=== PATIENT | male | born 1955 | race Caucasian/White ===

== ENCOUNTER 2016-08-22 11:43 | Inpatient (IN) | payer MEDICARE ==
[~2016-08-22] VITALS: Ht 177.8 cm; Wt 93.2 kg
[2016-08-22] MEDS ORDERED: HYDR25TA9 PO (12:19)
[2016-08-22] MEDS ORDERED: SIMV40TA3 PO (12:19)
[2016-08-22] MEDS ORDERED: IV NORMAL SALINE 1000ML BAG 1,000 ML IV SCH ×3 (12:20→17:00)
[2016-08-22] MEDS ORDERED: ASPI325T4 PO (12:20)
--- NOTE | 2016-08-22 12:25 | PHYS DOC ---
Past Medical History Past Medical History: Arrhythmia, High Cholesterol, Hypertension, Other Additional Past Medical Histor: RLS; Past Surgical History: Pacemaker, Other Additional Past Surgical Histo: hernia; ankle; pacemaker x2 Alcohol Use: Occasionally Drug Use: Marijuana Adult General Chief Complaint Chief Complaint: FLU SYMPTOM HPI HPI Patient is a 61 year old male who presents with complaint of generalized body aches, chills, and shortness of breath with exertion. Patient states his symptoms started yesterday. Patient denies any known sick contacts. Patient has not had fevers but states that he did have an episode of loose stools yesterday. Patient has had decreased oral intake but denies vomiting. Patient states that he had an episode yesterday where he had difficulty swallowing but states that this has resolved today. Denies any chest pain or abdominal pain at rest currently. Patient has not taken any medications to help with his symptoms. Due to worsening generalized weakness, patient was brought to the emergency department by his family for evaluation. Review of Systems Review of Systems Constitutional: Chills [] Eyes: Denies change in visual acuity, redness, or eye pain [] HENT: Denies nasal congestion or sore throat [] Respiratory: Shortness of breath with exertion, denies cough [] Cardiovascular: Denies chest pain or edema [] GI: Denies abdominal pain, nausea, vomiting, bloody stools or diarrhea [] : Denies dysuria or hematuria [] Musculoskeletal: Denies back pain or joint pain [] Integument: Denies rash or skin lesions [] Neurologic: Denies headache, focal weakness or sensory changes [] Current Medications Current Medications Current Medications Medications (Trade) Dose Ordered Sig/Opal Start Time Stop Time Status Last Admin Dose Admin Fentanyl Citrate 50 mcg 50 mcg PRN Q15MIN PRN 08/22/16 12:30 08/23/16 12:29 Info (Do NOT chart on this entry -- for MONITORING) 1 each PRN DAILY PRN 08/22/16 13:15 08/24/16 13:14 Iohexol (Omnipaque 300 Mg/ml) 75 ml 1X ONCE 08/22/16 13:15 08/22/16 13:16 DC 08/22/16 13:18 75 ML Ondansetron HCl (Zofran) 4 mg 1X ONCE 08/22/16 12:30 08/22/16 12:31 DC Sodium Chloride (Iv Sodium Chloride 0.9% 1000ml Bag) 1,000 ml @ 1,000 mls/hr Q1H 08/22/16 12:20 08/22/16 13:19 DC 08/22/16 13:40 1,000 MLS/HR Allergies Allergies Allergies Coded Allergies Type Severity Reaction Last Updated Verified codeine Allergy Intermediate 08/22/16 Yes nitroglycerin Adverse Reaction Intermediate headache 08/22/16 Yes Physical Exam Physical Exam Constitutional: Alert, afebrile, appears in mild discomfort. [] HENT: Normocephalic, atraumatic, bilateral external ears normal, oropharynx moist, no oral exudates, nose normal. [] Eyes: PERRLA, EOMI, conjunctiva normal, no discharge. [] Neck: Normal range of motion, no tenderness, supple, no stridor. [] Cardiovascular:Heart rate regular rhythm, no murmur [] Lungs & Thorax: Nonlabored respirations, Bilateral breath sounds clear to auscultation, chest nontender to palpation [] Abdomen: Bowel sounds normal, soft, left lower quadrant tenderness to palpation with guarding, no rebound tenderness, no masses, no pulsatile masses. [] Skin: Warm, dry, no erythema, no rash. [] Back: No tenderness, no CVA tenderness. [] Extremities: No tenderness, no cyanosis, no clubbing, ROM intact, no edema. [] Neurologic: Alert and oriented X 3, normal motor function, normal sensory function, no focal deficits noted. [] Current Patient Data Vital Signs Vital Signs Date Time Temp Pulse Resp B/P Pulse Ox O2 Delivery O2 Flow Rate FiO2 08/22/16 14:12 62 16 134/90 99 08/22/16 12:18 Room Air 08/22/16 11:50 97.8 97.8 Lab Values Laboratory Tests Test 08/22/16 12:20 08/22/16 12:34 08/22/16 13:30 Influenza Type A Antigen Negative (NEGATIVE) Influenza Type B Antigen Negative (NEGATIVE) White Blood Count 15.0x10^3/uL (4.0-11.0) H Red Blood Count 5.34x10^6/uL (4.30-5.70) Hemoglobin 16.1g/dL (13.0-17.5) Hematocrit 48.1% (39.0-53.0) Mean Corpuscular Volume 90fL (79-100) Mean Corpuscular Hemoglobin 30pg (25-35) Mean Corpuscular Hemoglobin Concent 33g/dL (31-37) Red Cell Distribution Width 14.3% (11.5-14.5) Platelet Count 236x10^3/uL (140-400) Neutrophils (%) (Auto) 75% (31-73) H Lymphocytes (%) (Auto) 18% (24-48) L Monocytes (%) (Auto) 5% (0-9) Eosinophils (%) (Auto) 1% (0-3) Basophils (%) (Auto) 1% (0-3) Neutrophils # (Auto) 11.3x10^3uL (1.8-7.7) H Lymphocytes # (Auto) 2.7x10^3/uL (1.0-4.8) Monocytes # (Auto) 0.8x10^3/uL (0.0-1.1) Eosinophils # (Auto) 0.1x10^3/uL (0.0-0.7) Basophils # (Auto) 0.2x10^3/uL (0.0-0.2) Sodium Level 140mmol/L (136-145) Potassium Level 3.6mmol/L (3.5-5.1) Chloride Level 103mmol/L (98-107) Carbon Dioxide Level 23mmol/L (21-32) Anion Gap 14 (6-14) Blood Urea Nitrogen 11mg/dL (8-26) Creatinine 1.1mg/dL (0.7-1.3) Estimated GFR (Cockcroft-Gault) 67.8 BUN/Creatinine Ratio 10 (6-20) Glucose Level 129mg/dL (70-99) H Calcium Level 9.8mg/dL (8.5-10.1) Total Bilirubin 0.7mg/dL (0.2-1.0) Aspartate Amino Transferase (AST) 23U/L (15-37) Alanine Aminotransferase (ALT) 43U/L (16-63) Alkaline Phosphatase 93U/L (46-116) Creatine Kinase 54U/L (39-308) Creatine Kinase MB (Mass) 0.6ng/mL (0.0-3.6) Creatine Kinase MB Relative Index 1.1% (0-4) Troponin I Quantitative < 0.017ng/mL (0.000-0.055) Total Protein 8.2g/dL (6.4-8.2) Albumin 4.1g/dL (3.4-5.0) Albumin/Globulin Ratio 1.0 (1.0-1.7) Lipase 1638U/L (73-393) H Urine Collection Type Unknown Urine Color Yellow Urine Clarity Clear Urine pH 5.0 Urine Specific [place] <=1.005 Urine Protein Negativemg/dL (NEG-TRACE) Urine Glucose (UA) Negativemg/dL (NEG) Urine Ketones (Stick) Negativemg/dL (NEG) Urine Blood Trace (NEG) Urine Nitrite Negative (NEG) Urine Bilirubin Negative (NEG) Urine Urobilinogen Dipstick 0.2mg/dL (0.2 mg/dL) Urine Leukocyte Esterase Negative (NEG) Urine RBC Occ/HPF (0-2) Urine WBC 0/HPF (0-4) Urine Squamous Epithelial Cells Occ/LPF Urine Bacteria 0/HPF (0-FEW) Urine Mucus Slight/LPF Laboratory Tests 08/22/16 12:34 Laboratory Tests 08/22/16 12:34 EKG EKG Interpreted by me: Heart rate 65, sinus rhythm, normal intervals, normal axis, no acute ST/T-wave abnormalities present [] Radiology/Procedures Radiology/Procedures [facility] [address] [place] [address] IMAGING REPORT Signed PATIENT: JORDI GRANDA ACCOUNT: [id number] : 1955 LOCATION: ER AGE: 61 SEX: M EXAM STATUS: REG ER ORD. PHYSICIAN: BERTRAND PETERSON MD REASON: shortness of breath PROCEDURE: PORTABLE CHEST 1V Indication: Shortness of breath. Time of exam 12:50 PM Correlation is made with prior study from 09/18/2009. Right subclavian cardiac pacer remains in place. Old pacer leads via the left subclavian remain in place. There appears to be chronic pleural thickening in the left base. No infiltrate or failure is detected. There is no pneumothorax. Impression: No acute feature identified. PQRS Compliance Statement: One or more of the following individualized dose reduction techniques were utilized for this examination: 1. Automated exposure control 2. Adjustment of the mA and/or kV according to patient size 3. Use of iterative reconstruction technique DICTATED and SIGNED BY: JAZMIN GOODMAN MD DATE: 08/22/16 1257 CC: BERTRAND PETERSON MD; KI TYSON MD ~ [facility] [address] [place] [address] IMAGING REPORT Signed PATIENT: JORDI GRANDA ACCOUNT: [id number] : 1955 LOCATION: ER AGE: 61 SEX: M EXAM STATUS: REG ER ORD. PHYSICIAN: BERTRAND PETERSON MD REASON: left lower quadrant abdominal pain PROCEDURE: ABD PELV W/ IV CONTRAST ONLY CT of the abdomen and pelvis with contrast, 08/22/2016: History: Left-sided pain Multidetector CT imaging was performed following oral administration of contrast. No IV contrast was administered. Transvenous pacing leads extending into the heart. There is no evidence of a hepatic mass or bile duct dilatation. The gallbladder is unremarkable. No pancreatic abnormality is seen. The spleen is of normal size. There is a small cyst arising from the posterior aspect of the right kidney. The right kidney is otherwise unremarkable. There is a 5.9 cm solid mass arising from the inferolateral aspect of the left kidney. The mass does not appear to contain fat. It demonstrates decreased density centrally. This likely represents tumor necrosis. A central scar from an oncocytoma is less likely. There is an 11 mm calculus in the lower pole collecting system of the left kidney. There is no evidence of hydronephrosis. The left renal vein is unremarkable. No adrenal abnormality is detected. Mild aortoiliac calcific plaquing is present without evidence of aneurysm. No retroperitoneal, mesenteric or pelvic adenopathy is seen. The prostate gland is near the upper limits of normal in size. A couple of small scattered colonic diverticula are noted without evidence of pericolic inflammation. The bowel loops are not dilated. The appendix is unremarkable. No free fluid or free air is evident in the abdomen or pelvis. IMPRESSION: 1. Left renal mass most likely representing renal cell carcinoma. 2. Nonobstructing calculus in the lower pole of the left kidney. 3. Small right renal cyst. DICTATED and SIGNED BY: JORDAN TIMMONS MD DATE: 08/22/16 3334 CC: BERTRAND PETERSON MD; KI TYSON MD ~ [] Course & Med Decision Making Course & Med Decision Making Pertinent Labs and Imaging studies reviewed. (See chart for details) Patient was found to have acute pancreatitis with unknown etiology. Patient started on IV fluids and fentanyl. Patient was also found to have a new left renal mass concerning for renal carcinoma. The patient will be admitted to the hospital for treatment of acute pancreatitis and patient will also have further evaluation of left renal mass. I spoke with Dr. Courtney who accepted care patient in hospital. A consult was placed to Dr. Aleman of to follow with patient in hospital. Dragon Disclaimer Dragon Disclaimer This electronic medical record was generated, in whole or in part, using a voice recognition dictation system. Departure Departure Impression: Primary Impression: Acute pancreatitis Additional Impression: Left renal mass Disposition: ADMITTED INPATIENT Admitting Physician: Phill Courtney Condition: STABLE Referrals: KI TYSON MD (PCP) Problem Qualifiers Primary Impression: Acute pancreatitis Pancreatitis type: unspecified pancreatitis type Acute pancreatitis complication: unspecified Qualified Code: K85.90 - Acute pancreatitis without necrosis or infection, unspecified BERTRAND PETERSON MD Aug 22, 2016 12:25
[2016-08-22] MEDS ORDERED: FENTANYL PF 100 MCG/2 ML VIAL. IV PRN ×2 (12:30→15:45)
[2016-08-22] MEDS ORDERED: ONDANSETRON PF 4 MG/2 ML VIAL. IV ONE (12:30)
[2016-08-22 12:50] LABS: OBC FLU VALID
[2016-08-22 12:54] LABS: BASO # 0.2 x10^3/uL (0.0-0.2); BASO % 1 % (0-3); EOS % 1 % (0-3); HEMATOCRIT 48.1 % (39.0-53.0); HEMOGLOBIN 16.1 g/dL (13.0-17.5); LYMPH # 2.7 x10^3/uL (1.0-4.8); LYMPH % 18 % (24-48); MEAN CORPUSCULAR HEMOGLOBIN 30 pg (25-35); MEAN CORPUSCULAR HGB CONC 33 g/dL (31-37); MEAN CORPUSCULAR VOLUME 90 fL (79-100); MONO % 5 % (0-9); NEUT % 75 % (31-73); PLATELET COUNT 236 x10^3/uL (140-400); RED BLOOD COUNT 5.34 x10^6/uL (4.30-5.70); RED CELL DISTRIBUTION WIDTH 14.3 % (11.5-14.5)
[2016-08-22 12:55] LABS: CALCIUM 9.8 mg/dL (8.5-10.1); CREATININE 1.1 mg/dL (0.7-1.3); GFR 67.8; POTASSIUM 3.6 mmol/L (3.5-5.1)
--- NOTE | 2016-08-22 12:56 | RAD ---
Indication: Shortness of breath. Time of exam 12:50 PM Correlation is made with prior study from 09/18/2009. Right subclavian cardiac pacer remains in place. Old pacer leads via the left subclavian remain in place. There appears to be chronic pleural thickening in the left base. No infiltrate or failure is detected. There is no pneumothorax. Impression: No acute feature identified. PQRS Compliance Statement: One or more of the following individualized dose reduction techniques were utilized for this examination: 1. Automated exposure control 2. Adjustment of the mA and/or kV according to patient size 3. Use of iterative reconstruction technique
[2016-08-22 13:02] LABS: ALBUMIN 4.1 g/dL (3.4-5.0); TOTAL BILIRUBIN 0.7 mg/dL (0.2-1.0); TOTAL PROTEIN 8.2 g/dL (6.4-8.2)
[2016-08-22 13:11] LABS: CKMB INDEX 1.1 % (0-4); CKMB MASS 0.6 ng/mL (0.0-3.6)
[2016-08-22] MEDS ORDERED: CONTRAST GIVEN MC PRN (13:15)
[2016-08-22] MEDS ORDERED: IOHEXOL 300 MG/ML 75 ML VIAL IV ONE (13:15)
--- NOTE | 2016-08-22 13:43 | RAD ---
CT of the abdomen and pelvis with contrast, 08/22/2016: History: Left-sided pain Multidetector CT imaging was performed following oral administration of contrast. No IV contrast was administered. Transvenous pacing leads extending into the heart. There is no evidence of a hepatic mass or bile duct dilatation. The gallbladder is unremarkable. No pancreatic abnormality is seen. The spleen is of normal size. There is a small cyst arising from the posterior aspect of the right kidney. The right kidney is otherwise unremarkable. There is a 5.9 cm solid mass arising from the inferolateral aspect of the left kidney. The mass does not appear to contain fat. It demonstrates decreased density centrally. This likely represents tumor necrosis. A central scar from an oncocytoma is less likely. There is an 11 mm calculus in the lower pole collecting system of the left kidney. There is no evidence of hydronephrosis. The left renal vein is unremarkable. No adrenal abnormality is detected. Mild aortoiliac calcific plaquing is present without evidence of aneurysm. No retroperitoneal, mesenteric or pelvic adenopathy is seen. The prostate gland is near the upper limits of normal in size. A couple of small scattered colonic diverticula are noted without evidence of pericolic inflammation. The bowel loops are not dilated. The appendix is unremarkable. No free fluid or free air is evident in the abdomen or pelvis. IMPRESSION: 1. Left renal mass most likely representing renal cell carcinoma. 2. Nonobstructing calculus in the lower pole of the left kidney. 3. Small right renal cyst.
[2016-08-22 13:54] LABS: BILIRUBIN,URINE NEGATIVE (NEG); GLUCOSE,URINE NEGATIVE (NEG); NITRITE,URINE NEGATIVE (NEG); PROTEIN,URINE NEGATIVE (NEG-TRACE); UROBILINOGEN,URINE 0.2 mg/dL (0.2 mg/dL)
[2016-08-22 14:04] LABS: BACTERIA,URINE 0 /HPF (0-FEW); RBC,URINE OCC /HPF (0-2); SQUAMOUS EPITHELIAL CELL,UR OCC /LPF; WBC,URINE 0 /HPF (0-4)
[2016-08-22] MEDS ORDERED: ONDANSETRON PF 4 MG/2 ML VIAL. IV PRN ×2 (15:45→19:15)
[2016-08-22] MEDS ORDERED: ACETAMINOPHEN 325 MG TABLET. PO PRN ×2 (15:45→19:15)
--- NOTE | 2016-08-22 16:05 | PDOC1 ---
History and Physical Current Medications Current Medications Current Medications Medications (Trade) Dose Ordered Sig/Opal Start Time Stop Time Status Last Admin Dose Admin Acetaminophen (Tylenol) 650 mg PRN Q4HRS PRN 08/22/16 15:45 08/23/16 15:44 Fentanyl Citrate (Fentanyl 2ml Vial) 50 mcg PRN Q15MIN PRN 08/22/16 12:30 08/23/16 12:29 Fentanyl Citrate 50 mcg 50 mcg PRN Q2HR PRN 08/22/16 15:45 08/23/16 15:44 Info (Do NOT chart on this entry -- for MONITORING) 1 each PRN DAILY PRN 08/22/16 13:15 08/24/16 13:14 Iohexol (Omnipaque 300 Mg/ml) 75 ml 1X ONCE 08/22/16 13:15 08/22/16 13:16 DC 08/22/16 13:18 75 ML Ondansetron HCl (Zofran) 4 mg PRN Q8HRS PRN 08/22/16 15:45 08/23/16 15:44 Sodium Chloride (Iv Sodium Chloride 0.9% 1000ml Bag) 1,000 ml @ 100 mls/hr Q10H 08/22/16 15:31 08/23/16 15:30 Allergies Allergies Allergies Coded Allergies Type Severity Reaction Last Updated Verified codeine Allergy Intermediate 08/22/16 Yes nitroglycerin Adverse Reaction Intermediate headache 08/22/16 Yes ROS Review of System CONSTITUTIONAL: No fever or chills EYES: No recent changes SKIN: No rash or itching CARDIOVASCULAR: No chest pain, syncope, palpitations, or edema RESPIRATORY: No SOB or cough GASTROINTESTINAL: No nausea, vomiting or abdominal pain NEUROLOGICAL: No headaches or weakness ENDOCRINE: No cold or heat intolerance GENITOURINARY: No urgency or frequency of urination MUSCULOSKELETAL: No back pain or joint pain LYMPHATICS: No enlarged lymph nodes PSYCHIATRIC: No anxiety or depression Physical Exam Physical Exam GEN.: No apparent distress. Alert and oriented. HEENT: Head is normocephalic, atraumatic NECK: Supple. no jvd LUNGS: Clear to auscultation. normal airflow HEART: RRR, S1, S2 present. Peripheral pulses intact ABDOMEN: Soft, mild llq tender. Positive bowel sounds. EXTREMITIES: Without any cyanosis. NEUROLOGIC: Normal speech, normal tone PSYCHIATRIC: Normal affect, normal mood. SKIN: No ulcerations Vitals Vitals Vital Signs Date Time Temp Pulse Resp B/P Pulse Ox O2 Delivery O2 Flow Rate FiO2 08/22/16 14:42 66 14 145/95 99 Room Air 08/22/16 11:50 97.8 97.8 Labs Labs Laboratory Tests Test 08/22/16 12:20 08/22/16 12:34 08/22/16 13:30 Influenza Type A Antigen Negative (NEGATIVE) Influenza Type B Antigen Negative (NEGATIVE) White Blood Count 15.0x10^3/uL (4.0-11.0) Red Blood Count 5.34x10^6/uL (4.30-5.70) Hemoglobin 16.1g/dL (13.0-17.5) Hematocrit 48.1% (39.0-53.0) Mean Corpuscular Volume 90fL (79-100) Mean Corpuscular Hemoglobin 30pg (25-35) Mean Corpuscular Hemoglobin Concent 33g/dL (31-37) Red Cell Distribution Width 14.3% (11.5-14.5) Platelet Count 236x10^3/uL (140-400) Neutrophils (%) (Auto) 75% (31-73) Lymphocytes (%) (Auto) 18% (24-48) Monocytes (%) (Auto) 5% (0-9) Eosinophils (%) (Auto) 1% (0-3) Basophils (%) (Auto) 1% (0-3) Neutrophils # (Auto) 11.3x10^3uL (1.8-7.7) Lymphocytes # (Auto) 2.7x10^3/uL (1.0-4.8) Monocytes # (Auto) 0.8x10^3/uL (0.0-1.1) Eosinophils # (Auto) 0.1x10^3/uL (0.0-0.7) Basophils # (Auto) 0.2x10^3/uL (0.0-0.2) Sodium Level 140mmol/L (136-145) Potassium Level 3.6mmol/L (3.5-5.1) Chloride Level 103mmol/L (98-107) Carbon Dioxide Level 23mmol/L (21-32) Anion Gap 14 (6-14) Blood Urea Nitrogen 11mg/dL (8-26) Creatinine 1.1mg/dL (0.7-1.3) Estimated GFR (Cockcroft-Gault) 67.8 BUN/Creatinine Ratio 10 (6-20) Glucose Level 129mg/dL (70-99) Calcium Level 9.8mg/dL (8.5-10.1) Total Bilirubin 0.7mg/dL (0.2-1.0) Aspartate Amino Transf (AST/SGOT) 23U/L (15-37) Alanine Aminotransferase (ALT/SGPT) 43U/L (16-63) Alkaline Phosphatase 93U/L (46-116) Creatine Kinase 54U/L (39-308) Creatine Kinase MB (Mass) 0.6ng/mL (0.0-3.6) Creatine Kinase MB Relative Index 1.1% (0-4) Troponin I Quantitative < 0.017ng/mL (0.000-0.055) Total Protein 8.2g/dL (6.4-8.2) Albumin 4.1g/dL (3.4-5.0) Albumin/Globulin Ratio 1.0 (1.0-1.7) Lipase 1638U/L (73-393) Urine Collection Type Unknown Urine Color Yellow Urine Clarity Clear Urine pH 5.0 Urine Specific [place] <=1.005 Urine Protein Negativemg/dL (NEG-TRACE) Urine Glucose (UA) Negativemg/dL (NEG) Urine Ketones (Stick) Negativemg/dL (NEG) Urine Blood Trace (NEG) Urine Nitrite Negative (NEG) Urine Bilirubin Negative (NEG) Urine Urobilinogen Dipstick 0.2mg/dL (0.2 mg/dL) Urine Leukocyte Esterase Negative (NEG) Urine RBC Occ/HPF (0-2) Urine WBC 0/HPF (0-4) Urine Squamous Epithelial Cells Occ/LPF Urine Bacteria 0/HPF (0-FEW) Urine Mucus Slight/LPF Laboratory Tests Test 08/22/16 12:20 08/22/16 12:34 08/22/16 13:30 Influenza Type A Antigen Negative (NEGATIVE) Influenza Type B Antigen Negative (NEGATIVE) White Blood Count 15.0x10^3/uL (4.0-11.0) Red Blood Count 5.34x10^6/uL (4.30-5.70) Hemoglobin 16.1g/dL (13.0-17.5) Hematocrit 48.1% (39.0-53.0) Mean Corpuscular Volume 90fL (79-100) Mean Corpuscular Hemoglobin 30pg (25-35) Mean Corpuscular Hemoglobin Concent 33g/dL (31-37) Red Cell Distribution Width 14.3% (11.5-14.5) Platelet Count 236x10^3/uL (140-400) Neutrophils (%) (Auto) 75% (31-73) Lymphocytes (%) (Auto) 18% (24-48) Monocytes (%) (Auto) 5% (0-9) Eosinophils (%) (Auto) 1% (0-3) Basophils (%) (Auto) 1% (0-3) Neutrophils # (Auto) 11.3x10^3uL (1.8-7.7) Lymphocytes # (Auto) 2.7x10^3/uL (1.0-4.8) Monocytes # (Auto) 0.8x10^3/uL (0.0-1.1) Eosinophils # (Auto) 0.1x10^3/uL (0.0-0.7) Basophils # (Auto) 0.2x10^3/uL (0.0-0.2) Sodium Level 140mmol/L (136-145) Potassium Level 3.6mmol/L (3.5-5.1) Chloride Level 103mmol/L (98-107) Carbon Dioxide Level 23mmol/L (21-32) Anion Gap 14 (6-14) Blood Urea Nitrogen 11mg/dL (8-26) Creatinine 1.1mg/dL (0.7-1.3) Estimated GFR (Cockcroft-Gault) 67.8 BUN/Creatinine Ratio 10 (6-20) Glucose Level 129mg/dL (70-99) Calcium Level 9.8mg/dL (8.5-10.1) Total Bilirubin 0.7mg/dL (0.2-1.0) Aspartate Amino Transf (AST/SGOT) 23U/L (15-37) Alanine Aminotransferase (ALT/SGPT) 43U/L (16-63) Alkaline Phosphatase 93U/L (46-116) Creatine Kinase 54U/L (39-308) Creatine Kinase MB (Mass) 0.6ng/mL (0.0-3.6) Creatine Kinase MB Relative Index 1.1% (0-4) Troponin I Quantitative < 0.017ng/mL (0.000-0.055) Total Protein 8.2g/dL (6.4-8.2) Albumin 4.1g/dL (3.4-5.0) Albumin/Globulin Ratio 1.0 (1.0-1.7) Lipase 1638U/L (73-393) Urine Collection Type Unknown Urine Color Yellow Urine Clarity Clear Urine pH 5.0 Urine Specific [place] <=1.005 Urine Protein Negativemg/dL (NEG-TRACE) Urine Glucose (UA) Negativemg/dL (NEG) Urine Ketones (Stick) Negativemg/dL (NEG) Urine Blood Trace (NEG) Urine Nitrite Negative (NEG) Urine Bilirubin Negative (NEG) Urine Urobilinogen Dipstick 0.2mg/dL (0.2 mg/dL) Urine Leukocyte Esterase Negative (NEG) Urine RBC Occ/HPF (0-2) Urine WBC 0/HPF (0-4) Urine Squamous Epithelial Cells Occ/LPF Urine Bacteria 0/HPF (0-FEW) Urine Mucus Slight/LPF VTE Prophylaxis Ordered VTE Prophylaxis Devices: Yes VTE Pharmacological Prophylaxi: Yes DWAYNE ARRIAGA MD Aug 22, 2016 16:05
[2016-08-22 16:10] VITALS: BP 156/99
--- NOTE | 2016-08-22 16:19 | PDOC2 ---
GI CONSULT Reason For Consult: Pancreatitis HPI: HPI: 61 y/o male brought to the ER by his family for weakness, bodyaches, chills, and occasional SOA. Labs significant for WBC [address] showed left renal mass. GI consulted for pancreatitis. History from pt, chart, and daughter, Kimberli. Weakness and dizziness has been ongoing for awhile; this comes and goes. GI- pleitez, he has a h/o reflux and heartburn treated occasionally w/ antacids (Tums) . He has some nausea and occasional dysphagia w/ liquids. Denies weight loss and says he has been eating normally at home. Had 1 loose stool recently but usually has no issues w/ diarrhea or constipation. No hematochezia or melena. No previous EGD or colonoscopy. Used to drink heavily but now only has the occasional beer w/ his son-in-law (who lives across the street) except for celebrating his birthday recently when he had "too many beers to count." PMH: PMH: HTN, HLD, pacemaker, restless leg syndrome, right ankle surgery (x2), hemorrhoidectomy FH: Family History: No pertinent hx Social History: Smoke: <1 pack per day ALCOHOL: other (used to drink heavily, only occasionally now except for celebrating his birthday) Drugs: Marijuana ROS: GEN: +chills HEENT: Denies blurred vision, sore throat CV: Denies chest pain RESP: +SOA GI: Per HPI : Denies hematuria, dysuria ENDO: Denies weight changes, +occasional BLE swelling NEURO: +dizziness MSK: +weakness SKIN: Denies jaundice, pruritus VItals: Vitals: Vital Signs Date Time Temp Pulse Resp B/P Pulse Ox O2 Delivery O2 Flow Rate FiO2 08/22/16 14:42 66 14 145/95 99 Room Air 08/22/16 11:50 97.8 97.8 Labs: Labs: Laboratory Tests Test 08/22/16 12:20 08/22/16 12:34 08/22/16 13:30 Influenza Type A Antigen Negative (NEGATIVE) Influenza Type B Antigen Negative (NEGATIVE) White Blood Count 15.0x10^3/uL (4.0-11.0) Red Blood Count 5.34x10^6/uL (4.30-5.70) Hemoglobin 16.1g/dL (13.0-17.5) Hematocrit 48.1% (39.0-53.0) Mean Corpuscular Volume 90fL (79-100) Mean Corpuscular Hemoglobin 30pg (25-35) Mean Corpuscular Hemoglobin Concent 33g/dL (31-37) Red Cell Distribution Width 14.3% (11.5-14.5) Platelet Count 236x10^3/uL (140-400) Neutrophils (%) (Auto) 75% (31-73) Lymphocytes (%) (Auto) 18% (24-48) Monocytes (%) (Auto) 5% (0-9) Eosinophils (%) (Auto) 1% (0-3) Basophils (%) (Auto) 1% (0-3) Neutrophils # (Auto) 11.3x10^3uL (1.8-7.7) Lymphocytes # (Auto) 2.7x10^3/uL (1.0-4.8) Monocytes # (Auto) 0.8x10^3/uL (0.0-1.1) Eosinophils # (Auto) 0.1x10^3/uL (0.0-0.7) Basophils # (Auto) 0.2x10^3/uL (0.0-0.2) Sodium Level 140mmol/L (136-145) Potassium Level 3.6mmol/L (3.5-5.1) Chloride Level 103mmol/L (98-107) Carbon Dioxide Level 23mmol/L (21-32) Anion Gap 14 (6-14) Blood Urea Nitrogen 11mg/dL (8-26) Creatinine 1.1mg/dL (0.7-1.3) Estimated GFR (Cockcroft-Gault) 67.8 BUN/Creatinine Ratio 10 (6-20) Glucose Level 129mg/dL (70-99) Calcium Level 9.8mg/dL (8.5-10.1) Total Bilirubin 0.7mg/dL (0.2-1.0) Aspartate Amino Transf (AST/SGOT) 23U/L (15-37) Alanine Aminotransferase (ALT/SGPT) 43U/L (16-63) Alkaline Phosphatase 93U/L (46-116) Creatine Kinase 54U/L (39-308) Creatine Kinase MB (Mass) 0.6ng/mL (0.0-3.6) Creatine Kinase MB Relative Index 1.1% (0-4) Troponin I Quantitative < 0.017ng/mL (0.000-0.055) Total Protein 8.2g/dL (6.4-8.2) Albumin 4.1g/dL (3.4-5.0) Albumin/Globulin Ratio 1.0 (1.0-1.7) Lipase 1638U/L (73-393) Urine Collection Type Unknown Urine Color Yellow Urine Clarity Clear Urine pH 5.0 Urine Specific [place] <=1.005 Urine Protein Negativemg/dL (NEG-TRACE) Urine Glucose (UA) Negativemg/dL (NEG) Urine Ketones (Stick) Negativemg/dL (NEG) Urine Blood Trace (NEG) Urine Nitrite Negative (NEG) Urine Bilirubin Negative (NEG) Urine Urobilinogen Dipstick 0.2mg/dL (0.2 mg/dL) Urine Leukocyte Esterase Negative (NEG) Urine RBC Occ/HPF (0-2) Urine WBC 0/HPF (0-4) Urine Squamous Epithelial Cells Occ/LPF Urine Bacteria 0/HPF (0-FEW) Urine Mucus Slight/LPF Allergies: Coded Allergies: codeine (Verified Allergy, Intermediate, 08/22/16) nitroglycerin (Verified Adverse Reaction, Intermediate, headache, 08/22/16) Medications: Current Medications Medications (Trade) Dose Ordered Sig/Opal Route PRN Reason Start Time Stop Time Status Last Admin Dose Admin Sodium Chloride (Iv Sodium Chloride 0.9% 1000ml Bag) 1,000 ml @ 1,000 mls/hr Q1H IV 08/22/16 12:20 08/22/16 13:19 DC 08/22/16 13:40 Iohexol (Omnipaque 300 Mg/ml) 75 ml 1X ONCE IV 08/22/16 13:15 08/22/16 13:16 DC 08/22/16 13:18 Imaging: Imaging: CT A/P w/ IV contrast 08/22/16 IMPRESSION: 1. Left renal mass most likely representing renal cell carcinoma. 2. Nonobstructing calculus in the lower pole of the left kidney. 3. Small right renal cyst. CXR 08/22/16 Impression: No acute feature identified. PE: GEN: NAD HEENT: Atraumatic, PERRL LUNGS: CTAB HEART: RRR ABD: NABS, S/ND, vague BLQ tenderness EXTREMITY: No edema SKIN: No rashes, no jaundice NEURO/PSYCH: A & O 3 A/P: A/P: Elevated lipase -normal pancreas, gallbladder on CT -normal LFTs -h/o significant alcohol intake, not so much now GERD -frequent symptoms (reflux, heartburn, nausea, dysphagia w/ liquids) treated w/ antacids -no previous EGD CRC screen -no previous colonoscopy Weakness Left renal mass -- Not clearly pancreatitis. Will start PPI and await workup for renal mass. EARLENE MELCHOR Aug 22, 2016 16:19
[2016-08-22 16:43] VITALS: BP 156/99
[2016-08-22] MEDS ORDERED: PRAM0.125 PO (16:47)
[2016-08-22] MEDS: PANTOPRAZOLE 40 MG TABLET. PO SCH (17:32)
--- NOTE | 2016-08-22 17:35 | EKG ---
[facility] [address] [place] [address] Test Date: 2016-08-22 Test Time: 12:26:53 Pat Name: JORDI GRANDA Department: Room: 562 1 Gender: M Clinical Statistics Manager: : [id number] Requested By: BERTRAND PETERSON Order Number: [id number] Reading MD: Barber Frost Measurements Intervals [place] Rate: 65 P: 45 UT: 154 QRS: 49 QRSD: 76 T: 51 QT: 392 QTc: 413 Interpretive Statements SINUS RHYTHM NORMAL ECG Electronically Signed On 08-23-2016 14:54:01 [employer]GER [employer] by Barber Frost
--- NOTE | 2016-08-22 18:19 | PDOC2 ---
UROLOGY CONSULT Date of Admission DATE: 08/22/16 TIME: 18:14 Reason for Consult: left renal mass Problems: (1) Acute pancreatitis admitted for workup for GI - abdominal pain. Imaging demonstrated left 6cm renal mass. Cr at 1.1 Feeling better Current Medications Current Medications Fentanyl Citrate 50 mcg 50 mcg PRN Q15MIN PRN IV PAIN GREATER THAN 3/10; Start 08/22/16 at 12:30; Stop 08/23/16 at 12:29 Sodium Chloride (Iv Sodium Chloride 0.9% 1000ml Bag) 1,000 ml @ 1,000 mls/hr Q1H IV Last administered on 08/22/16 13:40; Start 08/22/16 at 12:20; Stop at 13:19; Status DC Ondansetron HCl (Zofran) 4 mg 1X ONCE IV ; Start 08/22/16 at 12:30; Stop at 12:31; Status DC Iohexol (Omnipaque 300 Mg/ml) 75 ml 1X ONCE IV Last administered on 08/22/16 13:18; Start 08/22/16 at 13:15; Stop 08/22/16 at 13:16; Status DC Info (Do NOT chart on this entry -- for MONITORING) 1 each PRN DAILY PRN MC SEE COMMENTS; Start 08/22/16 at 13:15; Stop 08/24/16 at 13:14 Ondansetron HCl (Zofran) 4 mg PRN Q8HRS PRN IV NAUSEA/VOMITING; Start 08/22/16 at 15:45; Stop 08/23/16 at 15:44 Fentanyl Citrate 50 mcg 50 mcg PRN Q2HR PRN IV PAIN; Start 08/22/16 at 15:45; Stop 08/23/16 at 15:44 Sodium Chloride (Iv Sodium Chloride 0.9% 1000ml Bag) 1,000 ml @ 100 mls/hr Q10H IV ; Start 08/22/16 at 15:31; Stop 08/22/16 at 16:07; Status DC Acetaminophen 650 mg 650 mg PRN Q4HRS PRN PO FEVER; Start 08/22/16 at 15:45; Stop 08/23/16 at 15:44 Sodium Chloride (Iv Sodium Chloride 0.9% 1000ml Bag) 1,000 ml @ 150 mls/hr Q6H40M IV Last administered on 08/22/16 17:32; Start 08/22/16 at 17:00; Stop 08/23/16 at 16:59 Pantoprazole Sodium (Protonix) 40 mg DAILYAC PO Last administered on 08/22/16 17:32; Start 08/22/16 at 17:00 Active Scripts Active Reported Mirapex (Pramipexole Di-Hcl) 0.125 Mg Tablet 0.125 Mg PO HS Aspirin 325 Mg Tablet 1 Tab PO DAILY Simvastatin 40 Mg Tablet 1 Tab PO QHS Hydrochlorothiazide Tablet (Hydrochlorothiazide) 25 Mg Tablet 1 Tab PO DAILY Allergies: Coded Allergies: codeine (Verified Allergy, Intermediate, 08/22/16) nitroglycerin (Verified Adverse Reaction, Intermediate, headache, 08/22/16) Physical Examination GEN: NAD HEENT: head atraumatic, normocephalic CV: Regular LUNGS: Normal effort ABdomen: soft, mild TTP midline Skin: warm and moist Pysch: normal affect, pleasant VITALS Vital Signs Date Time Temp Pulse Resp B/P Pulse Ox O2 Delivery O2 Flow Rate FiO2 08/22/16 16:43 97.8 74 18 156/99 94 Room Air 97.8 Labs Laboratory Tests Test 08/22/16 12:20 08/22/16 12:34 08/22/16 13:30 Influenza Type A Antigen Negative (NEGATIVE) Influenza Type B Antigen Negative (NEGATIVE) White Blood Count 15.0x10^3/uL (4.0-11.0) Red Blood Count 5.34x10^6/uL (4.30-5.70) Hemoglobin 16.1g/dL (13.0-17.5) Hematocrit 48.1% (39.0-53.0) Mean Corpuscular Volume 90fL (79-100) Mean Corpuscular Hemoglobin 30pg (25-35) Mean Corpuscular Hemoglobin Concent 33g/dL (31-37) Red Cell Distribution Width 14.3% (11.5-14.5) Platelet Count 236x10^3/uL (140-400) Neutrophils (%) (Auto) 75% (31-73) Lymphocytes (%) (Auto) 18% (24-48) Monocytes (%) (Auto) 5% (0-9) Eosinophils (%) (Auto) 1% (0-3) Basophils (%) (Auto) 1% (0-3) Neutrophils # (Auto) 11.3x10^3uL (1.8-7.7) Lymphocytes # (Auto) 2.7x10^3/uL (1.0-4.8) Monocytes # (Auto) 0.8x10^3/uL (0.0-1.1) Eosinophils # (Auto) 0.1x10^3/uL (0.0-0.7) Basophils # (Auto) 0.2x10^3/uL (0.0-0.2) Sodium Level 140mmol/L (136-145) Potassium Level 3.6mmol/L (3.5-5.1) Chloride Level 103mmol/L (98-107) Carbon Dioxide Level 23mmol/L (21-32) Anion Gap 14 (6-14) Blood Urea Nitrogen 11mg/dL (8-26) Creatinine 1.1mg/dL (0.7-1.3) Estimated GFR (Cockcroft-Gault) 67.8 BUN/Creatinine Ratio 10 (6-20) Glucose Level 129mg/dL (70-99) Calcium Level 9.8mg/dL (8.5-10.1) Total Bilirubin 0.7mg/dL (0.2-1.0) Aspartate Amino Transf (AST/SGOT) 23U/L (15-37) Alanine Aminotransferase (ALT/SGPT) 43U/L (16-63) Alkaline Phosphatase 93U/L (46-116) Creatine Kinase 54U/L (39-308) Creatine Kinase MB (Mass) 0.6ng/mL (0.0-3.6) Creatine Kinase MB Relative Index 1.1% (0-4) Troponin I Quantitative < 0.017ng/mL (0.000-0.055) Total Protein 8.2g/dL (6.4-8.2) Albumin 4.1g/dL (3.4-5.0) Albumin/Globulin Ratio 1.0 (1.0-1.7) Lipase 1638U/L (73-393) Urine Collection Type Unknown Urine Color Yellow Urine Clarity Clear Urine pH 5.0 Urine Specific [place] <=1.005 Urine Protein Negativemg/dL (NEG-TRACE) Urine Glucose (UA) Negativemg/dL (NEG) Urine Ketones (Stick) Negativemg/dL (NEG) Urine Blood Trace (NEG) Urine Nitrite Negative (NEG) Urine Bilirubin Negative (NEG) Urine Urobilinogen Dipstick 0.2mg/dL (0.2 mg/dL) Urine Leukocyte Esterase Negative (NEG) Urine RBC Occ/HPF (0-2) Urine WBC 0/HPF (0-4) Urine Squamous Epithelial Cells Occ/LPF Urine Bacteria 0/HPF (0-FEW) Urine Mucus Slight/LPF Laboratory Tests Test 08/22/16 12:20 08/22/16 12:34 08/22/16 13:30 Influenza Type A Antigen Negative (NEGATIVE) Influenza Type B Antigen Negative (NEGATIVE) White Blood Count 15.0x10^3/uL (4.0-11.0) Red Blood Count 5.34x10^6/uL (4.30-5.70) Hemoglobin 16.1g/dL (13.0-17.5) Hematocrit 48.1% (39.0-53.0) Mean Corpuscular Volume 90fL (79-100) Mean Corpuscular Hemoglobin 30pg (25-35) Mean Corpuscular Hemoglobin Concent 33g/dL (31-37) Red Cell Distribution Width 14.3% (11.5-14.5) Platelet Count 236x10^3/uL (140-400) Neutrophils (%) (Auto) 75% (31-73) Lymphocytes (%) (Auto) 18% (24-48) Monocytes (%) (Auto) 5% (0-9) Eosinophils (%) (Auto) 1% (0-3) Basophils (%) (Auto) 1% (0-3) Neutrophils # (Auto) 11.3x10^3uL (1.8-7.7) Lymphocytes # (Auto) 2.7x10^3/uL (1.0-4.8) Monocytes # (Auto) 0.8x10^3/uL (0.0-1.1) Eosinophils # (Auto) 0.1x10^3/uL (0.0-0.7) Basophils # (Auto) 0.2x10^3/uL (0.0-0.2) Sodium Level 140mmol/L (136-145) Potassium Level 3.6mmol/L (3.5-5.1) Chloride Level 103mmol/L (98-107) Carbon Dioxide Level 23mmol/L (21-32) Anion Gap 14 (6-14) Blood Urea Nitrogen 11mg/dL (8-26) Creatinine 1.1mg/dL (0.7-1.3) Estimated GFR (Cockcroft-Gault) 67.8 BUN/Creatinine Ratio 10 (6-20) Glucose Level 129mg/dL (70-99) Calcium Level 9.8mg/dL (8.5-10.1) Total Bilirubin 0.7mg/dL (0.2-1.0) Aspartate Amino Transf (AST/SGOT) 23U/L (15-37) Alanine Aminotransferase (ALT/SGPT) 43U/L (16-63) Alkaline Phosphatase 93U/L (46-116) Creatine Kinase 54U/L (39-308) Creatine Kinase MB (Mass) 0.6ng/mL (0.0-3.6) Creatine Kinase MB Relative Index 1.1% (0-4) Troponin I Quantitative < 0.017ng/mL (0.000-0.055) Total Protein 8.2g/dL (6.4-8.2) Albumin 4.1g/dL (3.4-5.0) Albumin/Globulin Ratio 1.0 (1.0-1.7) Lipase 1638U/L (73-393) Urine Collection Type Unknown Urine Color Yellow Urine Clarity Clear Urine pH 5.0 Urine Specific [place] <=1.005 Urine Protein Negativemg/dL (NEG-TRACE) Urine Glucose (UA) Negativemg/dL (NEG) Urine Ketones (Stick) Negativemg/dL (NEG) Urine Blood Trace (NEG) Urine Nitrite Negative (NEG) Urine Bilirubin Negative (NEG) Urine Urobilinogen Dipstick 0.2mg/dL (0.2 mg/dL) Urine Leukocyte Esterase Negative (NEG) Urine RBC Occ/HPF (0-2) Urine WBC 0/HPF (0-4) Urine Squamous Epithelial Cells Occ/LPF Urine Bacteria 0/HPF (0-FEW) Urine Mucus Slight/LPF Images IMPRESSION: 1. Left renal mass 6cm most likely representing renal cell carcinoma. 2. Nonobstructing calculus in the lower pole of the left kidney. 3. Small right renal cyst. Assessment/Plan LEFT RENAL MASS - Recommend follow up with Dr Nelson, Urology, in outpatient setting to discuss and schedule left nephrectomy - No further evaluation necessary during hospitalization Problem Qualifiers (1) Acute pancreatitis: Pancreatitis type: unspecified pancreatitis type Acute pancreatitis complication: unspecified Qualified Code: K85.90 - Acute pancreatitis without necrosis or infection, unspecified BRET ROMO MD Aug 22, 2016 18:19
[2016-08-22 19:00] VITALS: BP 126/84
[2016-08-22] MEDS ORDERED: hydrALAZINE 20 MG/ML VIAL. IVP PRN (19:15)
[2016-08-22] MEDS ORDERED: ALBUTEROL SULFATE 2.5 MG/3 ML NEBU. NEB PRN (19:15)
[2016-08-22] MEDS ORDERED: NICOTINE 21MG PATCH. TD PRN (19:30)
--- NOTE | 2016-08-22 20:16 | HP ---
ADMIT DATE: 08/22/2016 CHIEF COMPLAINT: Body aches and chills. HISTORY OF PRESENT ILLNESS: A 61-year-old male patient presented to the ER with complaints of body aches, chills and flu-like symptoms for nearly one end of day and also developed some shortness of breath and cough. Denies any exertional chest pain or palpitations. Upon arrival to the ER, the patient noted to have elevated lipase levels and he was admitted to the hospital for questionable pancreatitis. The patient denies any other complaints such as sick contacts with nausea, vomiting, weakness or prior history of pancreatitis. PAST MEDICAL HISTORY: Hyperlipidemia, hypertension, arrhythmias. PAST SURGICAL HISTORY: Pacemaker placement. PERSONAL HISTORY: Takes occasionally alcohol, nicotine usage and takes marijuana. FAMILY HISTORY: No cancers. REVIEW OF SYSTEMS: Please see my electronic H and P. PHYSICAL EXAMINATION: Please see my electronic H and P. LABORATORY FINDINGS: WBC ____, MCV is 90,000, platelets are 236. Chemistry: Sodium is 140, potassium 3.6, anion gap is 11, BUN is 11, creatinine is 1.1, GFR is 67.8, glucose 129 and first set of troponins less than 0.017 and lipase is 1638. IMAGING STUDIES: 1. Chest x-ray: No acute abnormalities seen. 2. Abdomen and pelvis CT showed left renal mass, likely representing a renal cell carcinoma, nonobstructing calculus in the lower pole of the left kidney. ASSESSMENT: 1. Elevated lipase, questionable pancreatitis. 2. Flu-like symptoms. 3. Left renal mass, incidental finding. 4. Nonobstructing calculus, left lower pole of the kidney. PLAN: 1. Admit the patient for IV hydration at 75-100 mL per hour and we will order influenza A and B. 2. Urology has been consulted for further recommendations and also GI has been consulted. 3. We will order lipase in a.m. 4. Start him on Protonix for now. 5. Nicotine patch p.r.n. 6. Home medications reviewed and reconciled. Continue all home medications. 7. Pain control with IV morphine and oral [place]. DWAYNE ARRIAGA MD DR: OMERO/damian JOB#: [id number] / [id number] MTDD
[2016-08-22] MEDS: IV NORMAL SALINE 1000ML BAG 1,000 ML IV SCH (20:44)
[2016-08-22 22:50] VITALS: BP 123/93
[2016-08-23] MEDS: IV NORMAL SALINE 1000ML BAG 1,000 ML IV SCH (00:53)
[2016-08-23 02:55] VITALS: BP 142/96
[2016-08-23] MEDS: PANTOPRAZOLE 40 MG TABLET. PO SCH (05:29)
[2016-08-23 07:00] VITALS: BP 134/94
[2016-08-23 07:33] LABS: BASO # 0.1 x10^3/uL (0.0-0.2); BASO % 1 % (0-3); EOS % 1 % (0-3); HEMATOCRIT 44.7 % (39.0-53.0); HEMOGLOBIN 14.8 g/dL (13.0-17.5); LYMPH % 24 % (24-48); MEAN CORPUSCULAR HEMOGLOBIN 30 pg (25-35); MEAN CORPUSCULAR HGB CONC 33 g/dL (31-37); MEAN CORPUSCULAR VOLUME 90 fL (79-100); MONO % 9 % (0-9); NEUT % 65 % (31-73); PLATELET COUNT 221 x10^3/uL (140-400); RED BLOOD COUNT 4.94 x10^6/uL (4.30-5.70); RED CELL DISTRIBUTION WIDTH 14.6 % (11.5-14.5); WHITE BLOOD COUNT 12.3 x10^3/uL (4.0-11.0)
[2016-08-23 07:59] LABS: CALCIUM 8.9 mg/dL (8.5-10.1); GFR 75.7; POTASSIUM 3.6 mmol/L (3.5-5.1)
[2016-08-23] MEDS ORDERED: INFLUENZA VAX SCREEN BY RX. MC PRN (08:45)
[2016-08-23] MEDS ORDERED: ASPIRIN 325 MG TABLET PO SCH (09:00)
[2016-08-23] MEDS ORDERED: FLU VACC QUAD 2016-17 (36MOS+)/PF 0.5 ML SYRINGE. VAX IM ONE (09:00)
[2016-08-23] MEDS: ENOXAPARIN 40 MG/0.4 ML DISP.SYRIN. SQ SCH ×2 (09:00→09:09)
--- NOTE | 2016-08-23 10:12 | PDOC ---
PROGRESS NOTES Chief Complaint Chief Complaint A/P 1. Elevated lipase, unclear etiology, 2. Flu-like symptoms.resolved. 3. Left renal mass, incidental finding. 4. Nonobstructing calculus, left lower pole of the kidney. Plan follow up with Dr Nelson lipase better Protonix d/w daughter at bedside smoking cessation labs reviewed, lipase improved Possible DC today . Vitals Vitals Vital Signs Date Time Temp Pulse Resp B/P Pulse Ox O2 Delivery O2 Flow Rate FiO2 08/23/16 08:00 Room Air 08/23/16 07:00 97.8 64 18 134/94 96 97.8 Physical Exam General: Alert, Oriented X3 Heart: Regular rate, Normal S1, Normal S2 Lungs: Clear, Wheezing Abdomen: Normal bowel sounds, Soft Labs LABS Laboratory Tests Test 08/22/16 12:20 08/22/16 12:34 08/22/16 13:30 08/23/16 07:00 Influenza Type A Antigen Negative (NEGATIVE) Influenza Type B Antigen Negative (NEGATIVE) White Blood Count 15.0x10^3/uL (4.0-11.0) 12.3x10^3/uL (4.0-11.0) Red Blood Count 5.34x10^6/uL (4.30-5.70) 4.94x10^6/uL (4.30-5.70) Hemoglobin 16.1g/dL (13.0-17.5) 14.8g/dL (13.0-17.5) Hematocrit 48.1% (39.0-53.0) 44.7% (39.0-53.0) Mean Corpuscular Volume 90fL (79-100) 90fL (79-100) Mean Corpuscular Hemoglobin 30pg (25-35) 30pg (25-35) Mean Corpuscular Hemoglobin Concent 33g/dL (31-37) 33g/dL (31-37) Red Cell Distribution Width 14.3% (11.5-14.5) 14.6% (11.5-14.5) Platelet Count 236x10^3/uL (140-400) 221x10^3/uL (140-400) Neutrophils (%) (Auto) 75% (31-73) 65% (31-73) Lymphocytes (%) (Auto) 18% (24-48) 24% (24-48) Monocytes (%) (Auto) 5% (0-9) 9% (0-9) Eosinophils (%) (Auto) 1% (0-3) 1% (0-3) Basophils (%) (Auto) 1% (0-3) 1% (0-3) Neutrophils # (Auto) 11.3x10^3uL (1.8-7.7) 7.9x10^3uL (1.8-7.7) Lymphocytes # (Auto) 2.7x10^3/uL (1.0-4.8) 3.0x10^3/uL (1.0-4.8) Monocytes # (Auto) 0.8x10^3/uL (0.0-1.1) 1.1x10^3/uL (0.0-1.1) Eosinophils # (Auto) 0.1x10^3/uL (0.0-0.7) 0.1x10^3/uL (0.0-0.7) Basophils # (Auto) 0.2x10^3/uL (0.0-0.2) 0.1x10^3/uL (0.0-0.2) Sodium Level 140mmol/L (136-145) 141mmol/L (136-145) Potassium Level 3.6mmol/L (3.5-5.1) 3.6mmol/L (3.5-5.1) Chloride Level 103mmol/L (98-107) 106mmol/L (98-107) Carbon Dioxide Level 23mmol/L (21-32) 24mmol/L (21-32) Anion Gap 14 (6-14) 11 (6-14) Blood Urea Nitrogen 11mg/dL (8-26) 12mg/dL (8-26) Creatinine 1.1mg/dL (0.7-1.3) 1.0mg/dL (0.7-1.3) Estimated GFR (Cockcroft-Gault) 67.8 75.7 BUN/Creatinine Ratio 10 (6-20) Glucose Level 129mg/dL (70-99) 114mg/dL (70-99) Calcium Level 9.8mg/dL (8.5-10.1) 8.9mg/dL (8.5-10.1) Total Bilirubin 0.7mg/dL (0.2-1.0) Aspartate Amino Transf (AST/SGOT) 23U/L (15-37) Alanine Aminotransferase (ALT/SGPT) 43U/L (16-63) Alkaline Phosphatase 93U/L (46-116) Creatine Kinase 54U/L (39-308) Creatine Kinase MB (Mass) 0.6ng/mL (0.0-3.6) Creatine Kinase MB Relative Index 1.1% (0-4) Troponin I Quantitative < 0.017ng/mL (0.000-0.055) Total Protein 8.2g/dL (6.4-8.2) Albumin 4.1g/dL (3.4-5.0) Albumin/Globulin Ratio 1.0 (1.0-1.7) Lipase 1638U/L (73-393) 494U/L (73-393) Urine Collection Type Unknown Urine Color Yellow Urine Clarity Clear Urine pH 5.0 Urine Specific [place] <=1.005 Urine Protein Negativemg/dL (NEG-TRACE) Urine Glucose (UA) Negativemg/dL (NEG) Urine Ketones (Stick) Negativemg/dL (NEG) Urine Blood Trace (NEG) Urine Nitrite Negative (NEG) Urine Bilirubin Negative (NEG) Urine Urobilinogen Dipstick 0.2mg/dL (0.2 mg/dL) Urine Leukocyte Esterase Negative (NEG) Urine RBC Occ/HPF (0-2) Urine WBC 0/HPF (0-4) Urine Squamous Epithelial Cells Occ/LPF Urine Bacteria 0/HPF (0-FEW) Urine Mucus Slight/LPF Assessment and Plan Assessmemt and Plan Problems Medical Problems: (1) Acute pancreatitis Status: Acute (2) Left renal mass Status: Acute Problems: Comment Review of Relevant I have reviewed the following items giovanni (where applicable) has been applied. Labs Laboratory Tests Test 08/22/16 12:20 08/22/16 12:34 08/22/16 13:30 08/23/16 07:00 Influenza Type A Antigen Negative (NEGATIVE) Influenza Type B Antigen Negative (NEGATIVE) White Blood Count 15.0x10^3/uL (4.0-11.0) 12.3x10^3/uL (4.0-11.0) Red Blood Count 5.34x10^6/uL (4.30-5.70) 4.94x10^6/uL (4.30-5.70) Hemoglobin 16.1g/dL (13.0-17.5) 14.8g/dL (13.0-17.5) Hematocrit 48.1% (39.0-53.0) 44.7% (39.0-53.0) Mean Corpuscular Volume 90fL (79-100) 90fL (79-100) Mean Corpuscular Hemoglobin 30pg (25-35) 30pg (25-35) Mean Corpuscular Hemoglobin Concent 33g/dL (31-37) 33g/dL (31-37) Red Cell Distribution Width 14.3% (11.5-14.5) 14.6% (11.5-14.5) Platelet Count 236x10^3/uL (140-400) 221x10^3/uL (140-400) Neutrophils (%) (Auto) 75% (31-73) 65% (31-73) Lymphocytes (%) (Auto) 18% (24-48) 24% (24-48) Monocytes (%) (Auto) 5% (0-9) 9% (0-9) Eosinophils (%) (Auto) 1% (0-3) 1% (0-3) Basophils (%) (Auto) 1% (0-3) 1% (0-3) Neutrophils # (Auto) 11.3x10^3uL (1.8-7.7) 7.9x10^3uL (1.8-7.7) Lymphocytes # (Auto) 2.7x10^3/uL (1.0-4.8) 3.0x10^3/uL (1.0-4.8) Monocytes # (Auto) 0.8x10^3/uL (0.0-1.1) 1.1x10^3/uL (0.0-1.1) Eosinophils # (Auto) 0.1x10^3/uL (0.0-0.7) 0.1x10^3/uL (0.0-0.7) Basophils # (Auto) 0.2x10^3/uL (0.0-0.2) 0.1x10^3/uL (0.0-0.2) Sodium Level 140mmol/L (136-145) 141mmol/L (136-145) Potassium Level 3.6mmol/L (3.5-5.1) 3.6mmol/L (3.5-5.1) Chloride Level 103mmol/L (98-107) 106mmol/L (98-107) Carbon Dioxide Level 23mmol/L (21-32) 24mmol/L (21-32) Anion Gap 14 (6-14) 11 (6-14) Blood Urea Nitrogen 11mg/dL (8-26) 12mg/dL (8-26) Creatinine 1.1mg/dL (0.7-1.3) 1.0mg/dL (0.7-1.3) Estimated GFR (Cockcroft-Gault) 67.8 75.7 BUN/Creatinine Ratio 10 (6-20) Glucose Level 129mg/dL (70-99) 114mg/dL (70-99) Calcium Level 9.8mg/dL (8.5-10.1) 8.9mg/dL (8.5-10.1) Total Bilirubin 0.7mg/dL (0.2-1.0) Aspartate Amino Transf (AST/SGOT) 23U/L (15-37) Alanine Aminotransferase (ALT/SGPT) 43U/L (16-63) Alkaline Phosphatase 93U/L (46-116) Creatine Kinase 54U/L (39-308) Creatine Kinase MB (Mass) 0.6ng/mL (0.0-3.6) Creatine Kinase MB Relative Index 1.1% (0-4) Troponin I Quantitative < 0.017ng/mL (0.000-0.055) Total Protein 8.2g/dL (6.4-8.2) Albumin 4.1g/dL (3.4-5.0) Albumin/Globulin Ratio 1.0 (1.0-1.7) Lipase 1638U/L (73-393) 494U/L (73-393) Urine Collection Type Unknown Urine Color Yellow Urine Clarity Clear Urine pH 5.0 Urine Specific [place] <=1.005 Urine Protein Negativemg/dL (NEG-TRACE) Urine Glucose (UA) Negativemg/dL (NEG) Urine Ketones (Stick) Negativemg/dL (NEG) Urine Blood Trace (NEG) Urine Nitrite Negative (NEG) Urine Bilirubin Negative (NEG) Urine Urobilinogen Dipstick 0.2mg/dL (0.2 mg/dL) Urine Leukocyte Esterase Negative (NEG) Urine RBC Occ/HPF (0-2) Urine WBC 0/HPF (0-4) Urine Squamous Epithelial Cells Occ/LPF Urine Bacteria 0/HPF (0-FEW) Urine Mucus Slight/LPF Laboratory Tests Test 08/22/16 12:20 08/22/16 12:34 08/22/16 13:30 08/23/16 07:00 Influenza Type A Antigen Negative (NEGATIVE) Influenza Type B Antigen Negative (NEGATIVE) White Blood Count 15.0x10^3/uL (4.0-11.0) 12.3x10^3/uL (4.0-11.0) Red Blood Count 5.34x10^6/uL (4.30-5.70) 4.94x10^6/uL (4.30-5.70) Hemoglobin 16.1g/dL (13.0-17.5) 14.8g/dL (13.0-17.5) Hematocrit 48.1% (39.0-53.0) 44.7% (39.0-53.0) Mean Corpuscular Volume 90fL (79-100) 90fL (79-100) Mean Corpuscular Hemoglobin 30pg (25-35) 30pg (25-35) Mean Corpuscular Hemoglobin Concent 33g/dL (31-37) 33g/dL (31-37) Red Cell Distribution Width 14.3% (11.5-14.5) 14.6% (11.5-14.5) Platelet Count 236x10^3/uL (140-400) 221x10^3/uL (140-400) Neutrophils (%) (Auto) 75% (31-73) 65% (31-73) Lymphocytes (%) (Auto) 18% (24-48) 24% (24-48) Monocytes (%) (Auto) 5% (0-9) 9% (0-9) Eosinophils (%) (Auto) 1% (0-3) 1% (0-3) Basophils (%) (Auto) 1% (0-3) 1% (0-3) Neutrophils # (Auto) 11.3x10^3uL (1.8-7.7) 7.9x10^3uL (1.8-7.7) Lymphocytes # (Auto) 2.7x10^3/uL (1.0-4.8) 3.0x10^3/uL (1.0-4.8) Monocytes # (Auto) 0.8x10^3/uL (0.0-1.1) 1.1x10^3/uL (0.0-1.1) Eosinophils # (Auto) 0.1x10^3/uL (0.0-0.7) 0.1x10^3/uL (0.0-0.7) Basophils # (Auto) 0.2x10^3/uL (0.0-0.2) 0.1x10^3/uL (0.0-0.2) Sodium Level 140mmol/L (136-145) 141mmol/L (136-145) Potassium Level 3.6mmol/L (3.5-5.1) 3.6mmol/L (3.5-5.1) Chloride Level 103mmol/L (98-107) 106mmol/L (98-107) Carbon Dioxide Level 23mmol/L (21-32) 24mmol/L (21-32) Anion Gap 14 (6-14) 11 (6-14) Blood Urea Nitrogen 11mg/dL (8-26) 12mg/dL (8-26) Creatinine 1.1mg/dL (0.7-1.3) 1.0mg/dL (0.7-1.3) Estimated GFR (Cockcroft-Gault) 67.8 75.7 BUN/Creatinine Ratio 10 (6-20) Glucose Level 129mg/dL (70-99) 114mg/dL (70-99) Calcium Level 9.8mg/dL (8.5-10.1) 8.9mg/dL (8.5-10.1) Total Bilirubin 0.7mg/dL (0.2-1.0) Aspartate Amino Transf (AST/SGOT) 23U/L (15-37) Alanine Aminotransferase (ALT/SGPT) 43U/L (16-63) Alkaline Phosphatase 93U/L (46-116) Creatine Kinase 54U/L (39-308) Creatine Kinase MB (Mass) 0.6ng/mL (0.0-3.6) Creatine Kinase MB Relative Index 1.1% (0-4) Troponin I Quantitative < 0.017ng/mL (0.000-0.055) Total Protein 8.2g/dL (6.4-8.2) Albumin 4.1g/dL (3.4-5.0) Albumin/Globulin Ratio 1.0 (1.0-1.7) Lipase 1638U/L (73-393) 494U/L (73-393) Urine Collection Type Unknown Urine Color Yellow Urine Clarity Clear Urine pH 5.0 Urine Specific [place] <=1.005 Urine Protein Negativemg/dL (NEG-TRACE) Urine Glucose (UA) Negativemg/dL (NEG) Urine Ketones (Stick) Negativemg/dL (NEG) Urine Blood Trace (NEG) Urine Nitrite Negative (NEG) Urine Bilirubin Negative (NEG) Urine Urobilinogen Dipstick 0.2mg/dL (0.2 mg/dL) Urine Leukocyte Esterase Negative (NEG) Urine RBC Occ/HPF (0-2) Urine WBC 0/HPF (0-4) Urine Squamous Epithelial Cells Occ/LPF Urine Bacteria 0/HPF (0-FEW) Urine Mucus Slight/LPF Medications Current Medications Fentanyl Citrate 50 mcg 50 mcg PRN Q15MIN PRN IV PAIN GREATER THAN 3/10; Start 08/22/16 at 12:30; Stop 08/23/16 at 12:29 Sodium Chloride (Iv Sodium Chloride 0.9% 1000ml Bag) 1,000 ml @ 1,000 mls/hr Q1H IV Last administered on 08/22/16 13:40; Start 08/22/16 at 12:20; Stop at 13:19; Status DC Ondansetron HCl (Zofran) 4 mg 1X ONCE IV ; Start 08/22/16 at 12:30; Stop at 12:31; Status DC Iohexol (Omnipaque 300 Mg/ml) 75 ml 1X ONCE IV Last administered on 08/22/16 13:18; Start 08/22/16 at 13:15; Stop 08/22/16 at 13:16; Status DC Info (Do NOT chart on this entry -- for MONITORING) 1 each PRN DAILY PRN MC SEE COMMENTS; Start 08/22/16 at 13:15; Stop 08/24/16 at 13:14 Ondansetron HCl (Zofran) 4 mg PRN Q8HRS PRN IV NAUSEA/VOMITING; Start 08/22/16 at 15:45; Stop 08/23/16 at 15:44 Fentanyl Citrate 50 mcg 50 mcg PRN Q2HR PRN IV PAIN; Start 08/22/16 at 15:45; Stop 08/23/16 at 15:44 Sodium Chloride (Iv Sodium Chloride 0.9% 1000ml Bag) 1,000 ml @ 100 mls/hr Q10H IV ; Start 08/22/16 at 15:31; Stop 08/22/16 at 16:07; Status DC Acetaminophen 650 mg 650 mg PRN Q4HRS PRN PO FEVER Last administered on 20:42; Start 08/22/16 at 15:45; Stop 08/23/16 at 15:44 Sodium Chloride (Iv Sodium Chloride 0.9% 1000ml Bag) 1,000 ml @ 150 mls/hr Q6H40M IV Last administered on 08/22/16 17:32; Start 08/22/16 at 17:00; Stop 08/22/16 at 19:28; Status DC Pantoprazole Sodium (Protonix) 40 mg DAILYAC PO Last administered on 08/23/16 05:29; Start 08/22/16 at 17:00 Aspirin (Janett Aspirin) 325 mg DAILY PO Last administered on 08/23/16 09:08; Start 08/23/16 at 09:00 Acetaminophen (Tylenol) 325 mg PRN Q6HRS PRN PO MILD PAIN / TEMP; Start at 19:15 Hydralazine HCl (Apresoline) 10 mg PRN Q4HRS PRN IVP ELEVATED BP, SEE COMMENTS ; Start 08/22/16 at 19:15 Ondansetron HCl (Zofran) 4 mg PRN Q8HRS PRN IV NAUSEA/VOMITING; Start 08/22/16 at 19:15 Albuterol Sulfate (Ventolin Neb Soln) 2.5 mg PRN Q4HRS PRN NEB SHORTNESS OF BREATH; Start 08/22/16 at 19:15 Enoxaparin Sodium 40 mg 40 mg DAILY SQ ; Start 08/23/16 at 09:00 Sodium Chloride (Iv Sodium Chloride 0.9% 1000ml Bag) 1,000 ml @ 125 mls/hr Q8H IV Last administered on 08/23/16t 00:53; Start 08/22/16 at 20:00; Stop at 20:01; Status DC Nicotine (Nicoderm Cq 21mg) 1 patch PRN DAILY PRN TD SMOKING CESSATION; Start 08/22/16 at 19:30 Info (Do NOT chart on this placeholder) 1 each PRN 1X PRN MC SEE COMMENTS; Start 08/23/16 at 08:45; Status UNV Influenza Virus Vaccine Quadrival (Fluarix Quad [id number] Syringe) 0.5 ml ONCE ONCE VAX IM ; Start 08/23/16 at 09:00; Stop 08/23/16 at 09:01; Status DC Active Scripts Active Reported Mirapex (Pramipexole Di-Hcl) 0.125 Mg Tablet 0.125 Mg PO HS Aspirin 325 Mg Tablet 1 Tab PO DAILY Simvastatin 40 Mg Tablet 1 Tab PO QHS Hydrochlorothiazide Tablet (Hydrochlorothiazide) 25 Mg Tablet 1 Tab PO DAILY Vitals/I & O Vital Sign - Last 24 Hours 08/22/16 08/22/16 08/22/16 08/22/16 11:50 12:18 13:27 13:42 Temp 97.8 97.8 Pulse 80 72 84 68 Resp B/P 163/106 159/95 120/74 145/97 Pulse Ox 100 98 99 99 O2 Delivery Room Air Room Air 08/22/16 08/22/16 08/22/16 08/22/16 14:12 14:42 16:10 16:43 Temp 97.8 97.8 97.8 97.8 Pulse 62 66 74 74 Resp 18 B/P 134/90 145/95 156/99 156/99 Pulse Ox 99 99 94 94 O2 Delivery Room Air Room Air Room Air 08/22/16 08/22/16 08/22/16 08/22/16 19:00 20:00 20:15 22:50 Temp 97.4 97.8 97.4 97.8 Pulse 87 67 Resp 20 18 B/P 126/84 123/93 Pulse Ox 95 96 96 O2 Delivery Room Air Room Air Room Air Room Air 08/23/16 08/23/16 08/23/16 02:55 07:00 08:00 Temp 98.0 97.8 98.0 97.8 Pulse 71 64 Resp 18 18 B/P 142/96 134/94 Pulse Ox 97 96 O2 Delivery Room Air Room Air Room Air Intake and Output 08/22/16 08/22/16 08/23/16 15:00 23:00 07:00 Intake Total 1000 ml 1467 ml Output Total 0 ml Balance 1000 ml 0 ml 1467 ml DWAYNE ARRIAGA MD Aug 23, 2016 10:12
--- NOTE | 2016-08-23 10:17 | PDOC ---
Subjective: Subjective: Feeling better. Denies n/v, abd pain. Eating well. Feels ready to DC. Objective: Objective: Reviewed urology note. Vital Signs: Vital Signs Date Time Temp Pulse Resp B/P Pulse Ox O2 Delivery O2 Flow Rate FiO2 08/23/16 08:00 Room Air 08/23/16 07:00 97.8 64 18 134/94 96 97.8 Labs: Laboratory Tests Test 08/22/16 12:20 08/22/16 12:34 08/22/16 13:30 08/23/16 07:00 Influenza Type A Antigen Negative Influenza Type B Antigen Negative White Blood Count 15.0x10^3/uL 12.3x10^3/uL Red Blood Count 5.34x10^6/uL 4.94x10^6/uL Hemoglobin 16.1g/dL 14.8g/dL Hematocrit 48.1% 44.7% Mean Corpuscular Volume 90fL 90fL Mean Corpuscular Hemoglobin 30pg 30pg Mean Corpuscular Hemoglobin Concent 33g/dL 33g/dL Red Cell Distribution Width 14.3% 14.6% Platelet Count 236x10^3/uL 221x10^3/uL Neutrophils (%) (Auto) 75% 65% Lymphocytes (%) (Auto) 18% 24% Monocytes (%) (Auto) 5% 9% Eosinophils (%) (Auto) 1% 1% Basophils (%) (Auto) 1% 1% Neutrophils # (Auto) 11.3x10^3uL 7.9x10^3uL Lymphocytes # (Auto) 2.7x10^3/uL 3.0x10^3/uL Monocytes # (Auto) 0.8x10^3/uL 1.1x10^3/uL Eosinophils # (Auto) 0.1x10^3/uL 0.1x10^3/uL Basophils # (Auto) 0.2x10^3/uL 0.1x10^3/uL Sodium Level 140mmol/L 141mmol/L Potassium Level 3.6mmol/L 3.6mmol/L Chloride Level 103mmol/L 106mmol/L Carbon Dioxide Level 23mmol/L 24mmol/L Anion Gap 14 11 Blood Urea Nitrogen 11mg/dL 12mg/dL Creatinine 1.1mg/dL 1.0mg/dL Estimated GFR (Cockcroft-Gault) 67.8 75.7 BUN/Creatinine Ratio 10 Glucose Level 129mg/dL 114mg/dL Calcium Level 9.8mg/dL 8.9mg/dL Total Bilirubin 0.7mg/dL Aspartate Amino Transf (AST/SGOT) 23U/L Alanine Aminotransferase (ALT/SGPT) 43U/L Alkaline Phosphatase 93U/L Creatine Kinase 54U/L Creatine Kinase MB (Mass) 0.6ng/mL Creatine Kinase MB Relative Index 1.1% Troponin I Quantitative < 0.017ng/mL Total Protein 8.2g/dL Albumin 4.1g/dL Albumin/Globulin Ratio 1.0 Lipase 1638U/L 494U/L Urine Collection Type Unknown Urine Color Yellow Urine Clarity Clear Urine pH 5.0 Urine Specific [place] <=1.005 Urine Protein Negativemg/dL Urine Glucose (UA) Negativemg/dL Urine Ketones (Stick) Negativemg/dL Urine Blood Trace Urine Nitrite Negative Urine Bilirubin Negative Urine Urobilinogen Dipstick 0.2mg/dL Urine Leukocyte Esterase Negative Urine RBC Occ/HPF Urine WBC 0/HPF Urine Squamous Epithelial Cells Occ/LPF Urine Bacteria 0/HPF Urine Mucus Slight/LPF PE: GEN: NAD LUNGS: CTAB anteriorly HEART: RRR ABD: NABS, S/ND, epigastric discomfort NEURO/PSYCH: A & O 3 A/P: Elevated lipase - improved -normal pancreas on CT GERD -was on antacids PRN at home, started PPI here, no previous EGD Upper abd discomfort -today on exam Left renal mass -- Feeling better. Would continue PPI (discussed optimal dosing each morning 30-45 min before breakfast). Note plans to see urology as outpatient to discuss left nephrectomy. Follow-up w/ Dr. Aleman for outpt EGD and colonoscopy (for screening). DC per primary. EARLENE MELCHOR Aug 23, 2016 10:17
[2016-08-23 10:57] VITALS: BP 133/94
[2016-08-23] MEDS ORDERED: PANT40TA3 PO (11:00)
--- NOTE | 2016-08-23 12:43 | ACF ---
Admission Forms Criteria PANCREATITIS Clinical Indications for Admission to Inpatient Care (Place 'X' for any and all applicable criteria): Admission is indicated for ANY ONE of the following (1)(2)(3)(4): [X]I. Acute pancreatitis[A] as indicated by 2 or more of the following: [X]a) Abdominal pain (eg, epigastric, left upper quadrant) [X]b) Serum amylase or serum lipase greater than 3 times the upper limit of normal [ ]c) Characteristic findings from abdominal imaging (eg, pancreatic inflammation, pancreatic necrosis, peripancreatic fluid collection)[B] [ ]II. Pancreatitis (acute or chronic ) requiring inpatient care as indicated by 1 or more of the following : [ ]a) Inability to maintain oral hydration Hypoxemia [ ]b) Evidence of infection (eg, fever, peripancreatic abscess) [ ]c) Severe pain requiring acute inpatient management [ ]d) Hemodynamic instability [ ]e) Hypoxemia [ ]f) Acute renal failure [ ]g) Severe electrolyte abnormalities Extended stay beyond goal length of stay may be needed for (1)(11) [ ]a) Severe acute pancreatitis (10)(19) [ ]b) Persistent symptoms, ascites, or pleural effusion [ ]c) Abdominal compartment syndrome (10) [ ]d) Late complications [ ]e) Acute renal failure (27) [ ]f) Gallstones in gallbladder The original [employer] content created by [employer] has been revised. The portions of the content which have been revised are identified through the use of italic text or in bold,and [facility] has neither reviewed nor approved the modified material.All other unmodified content is copyright [facility]. Please see references footnoted in the original [facility] edition 2016 Admission Criteria Met?: Yes GORDON KATE Aug 23, 2016 12:42
--- NOTE | 2016-08-23 20:57 | DS ---
DATE OF DISCHARGE: 08/23/2016 DISCHARGE DIAGNOSES: 1. Elevated lipase, unclear etiology, less likely pancreatitis, likely due to either gastritis or gastroesophageal reflux disease. 2. Flu-like symptoms, resolved. 3. Left renal mass, incidental finding, needs outpatient followup with Urology. 4. Nonobstructive calculus. BRIEF HOSPITAL COURSE: A 61-year-old male patient presented to the ER with flu-like symptoms. Upon initial labs, he was diagnosed with elevated lipase and left renal mass. The patient was admitted for IV hydration and Urology consultation. With IV hydration, his lipase has been improved and he could able to tolerate diet and denies any abdominal pain, fever, chills, nausea or vomiting. He has been evaluated by Gastroenterology, no further recommendations made at this time; however, the patient needs outpatient followup with Dr. Nelson for further recommendations about left renal mass. DISCHARGE EXAMINATION: GENERAL: Alert, oriented x 3. HEART: S1, S2 present. LUNGS: Clear to auscultation. ABDOMEN: Soft, nontender, no organomegaly. EXTREMITIES: No edema. DISCHARGE DISPOSITION: Home. DISCHARGE CONDITION: Stable. DISCHARGE FOLLOWUP: With Dr. Nelson in 1-2 weeks. Total time spent for discharge is 31 minutes for patient education, counseling, and coordination of care. DWAYNE ARRIAGA MD DR: OMERO/damian JOB#: [id number] / [id number]
== END 2016-08-23 14:00 | disposition home or self-care (01) | DRG 392 ==
LOC: ER 11:43 → 5 SOUTH 14:12
PROVIDERS: ADMIT Internal Medicine; ATTEND Internal Medicine
DX: K29.70 Gastritis, unspecified, without bleeding (principal); N28.89 Other specified disorders of kidney and ureter; E78.00 Pure hypercholesterolemia, unspecified; E78.5 Hyperlipidemia, unspecified; G25.81 Restless legs syndrome; I10 Essential (primary) hypertension; K21.9 Gastro-esophageal reflux disease without esophagitis; K57.30 Diverticulosis of large intestine without perforation or abscess without bleeding; N28.1 Cyst of kidney, acquired; R13.10 Dysphagia, unspecified; Z95.0 Presence of cardiac pacemaker; F12.90 Cannabis use, unspecified, uncomplicated; Z88.6 Allergy status to analgesic agent; Z88.8 Allergy status to other drugs, medicaments and biological substances
CPT/HCPCS: 36415; 71010; 74177; 80048; 80053; 81001; 82553; 83690; 84484; 85027; 87804; 90686; 93005; 94250; 94760; 96360; J1650; J7030; Q9967; 99285-25